=== PATIENT | male | born 1985 | race Caucasian/White ===

== ENCOUNTER 2023-06-19 11:25 | Observation (INO) | payer OTHER ==
[~2023-06-19] VITALS: Ht 180.3 cm; Wt 75.5 kg
[2023-06-19 16:18] LABS: Source, Urine Clean Catch
[2023-06-19 16:31] LABS: Appearance, Urine Clear (Clear); Bilirubin, Urine Neg (Neg); Blood, Urine Neg (Neg); Color, Urine Yellow (P-Yellow); Glucose Qualitative, Urine Neg (Neg); Ketones, Urine Neg (Neg); Leukocyte Esterase, Urine 1+ (Neg); Nitrite, Urine Neg (Neg); Protein, Urine 1+ (Neg); Urobilinogen, Urine NORM (Normal)
[2023-06-19 16:39] LABS: Bacteria Rare /hpf; Red Blood Cells, Urine 0-2 /hpf (0-2); Squamous Epithelial Cells Not Seen /hpf (Few)
[2023-06-19] MEDS ORDERED: Ketorolac Tromethamine 30mg Vial IV ONE (16:50)
[2023-06-19] MEDS ORDERED: HYDROmorphone HCl/Pf 1MG SYR IV PRN (17:10)
[2023-06-19] MEDS ORDERED: Ondansetron HCl 2 MG / ML 2ML Vial IV PRN (17:10)
[2023-06-19] MEDS ORDERED: OxyCODONE HCL 5 MG TAB PO PRN (17:15)
[2023-06-19] MEDS ORDERED: Lactated Ringer's 1,000 ML IV SCH (17:15)
[2023-06-19] MEDS ORDERED: FLU VACC QS2023-24(6MOS UP)/PF 60 MCG/0.5 ML SYRINGE IM ONE (17:15)
[2023-06-19] MEDS ORDERED: Acetaminophen 325 MG TABLET PO PRN (17:15)
[2023-06-19] MEDS ORDERED: Ketorolac Tromethamine 15mg Vial IV PRN (17:20)
[2023-06-19] MEDS ORDERED: CeFAZolin Sodium 2,000 MG in NS 50 ML IV SCH (17:20)
[2023-06-19 19:47] VITALS: BP 118/88
[2023-06-19] MEDS ORDERED: IBUP200 PO (20:04)
[2023-06-20] VITALS (23 sets, daily range): BP systolic 103–150; BP diastolic 49–95
--- NOTE | 2023-06-20 01:31 | NUR ---
ARRIVAL TO UNIT. LATE ENTRY. PT ARRIVED VIA W/C FROM ER TO ROOM 209 AT 1945 ON 06/19/23. PT AMBULATORY AND TRANSFERED INDEPENDENTLY TO BED. A/OX4. WT AND VITALS OBTAINED. PT RATES GROIN PAIN 3/10 AND REPORTS IS TOLERABLE. PT EDUCATED ON [facility]MO[facility] AND ORIENTED TO ROOM. PT PROVIDED SNACKS AND SANDWICH FROM [facility] HE IS NPO AT 0000. PT RESTING IN BED AWAKE WITH CALL LIGHT IN REACH.
[2023-06-20 05:20] LABS: BASOPHILS ABSOLUTE AUTO 0.06 K/mm3 (0.00-0.23); BASOPHILS PERCENT AUTO 1 % (0-2); EOSINOPHILS ABSOLUTE AUTO 0.22 K/mm3 (0.00-0.68); EOSINOPHILS PERCENT AUTO 4 % (0-6); Hematocrit 43.8 % (37.0-53.0); Hemoglobin 14.6 g/dL (13.5-17.5); IMMATURE GRAN ABSOLUTE AUTO 0.03 K/mm3 (0.00-0.10); IMMATURE GRAN PERCENT AUTO 1 % (0-1); LYMPHOCYTES ABSOLUTE AUTO 2.48 K/mm3 (0.84-5.20); LYMPHOCYTES PERCENT AUTO 42 % (21-46); MONOCYTES ABSOLUTE AUTO 0.47 K/mm3 (0.16-1.47); MONOCYTES PERCENT AUTO 8 % (4-13); Mean Corpuscular HGB 28.5 pg (26.0-34.0); Mean Corpuscular HGB Conc 33.3 g/dL (31.5-36.5); Mean Corpuscular Volume 85 fL (80-100); Mean Platelet Volume 9.1 fL (9.1-12.4); NEUTROPHILS ABSOLUTE AUTO 2.67 K/mm3 (1.96-9.15); NEUTROPHILS PERCENT AUTO 45 % (41-73); Platelet Count 385 K/mm3 (150-400); RDW Coefficient Variation 12.8 % (11.7-14.2); RDW Standard Deviation 39.9 fL (35.1-46.3); Red Blood Cell Count 5.13 M/mm3 (4.30-5.90); White Blood Cell Count 5.93 K/mm3 (4.00-11.30)
[2023-06-20 05:50] LABS: Albumin, Blood 3.3 g/dL (3.4-5.0); Albumin/Globulin Ratio 0.9 (0.8-1.8); Bilirubin, Total 0.2 mg/dL (0.1-1.0); Bun/Creatinine Ratio 21.3 (12.0-20.0); Calcium, Blood 9.6 mg/dL (8.5-10.1); Creatinine, Blood 0.85 mg/dL (0.60-1.20); Globulin, Blood 3.5 g/dL (2.2-4.0); Potassium, Blood 3.9 mmol/L (3.5-5.5); Total Protein, Blood 6.8 g/dL (6.4-8.2)
--- NOTE | 2023-06-20 08:09 | NUR ---
SHIFT SUMMARY NOC. PT A/O X4. PT REPORTS GROIN PAIN 3/10 THIS SHIFT AND DECLINES PAIN MEDICATION WHEN OFFERED, PT REPORTS PAIN IS TOLERABLE. SURGICAL PREVENTION COMPLETED. PT NPO SINCE 0000. PT VOIDING AND AMBULATES TO BR WITH SBA. PT RESTED WITH EYES CLOSED AND CALL LIGHT IN REACH.
[2023-06-20] MEDS ORDERED: Bupivacaine 0.5% HCl 5 MG/ML 30MLVIAL ONE (09:49)
[2023-06-20] MEDS ORDERED: Midazolam HCl 1MG / ML 2ML Vial ONE (10:45)
[2023-06-20] MEDS ORDERED: FentaNYL Citrate 50 MCG/ML 5 ML Injection ONE (10:45)
[2023-06-20] MEDS ORDERED: propofoL 20 ML IV ONE (10:45)
[2023-06-20] MEDS ORDERED: Dexamethasone Sod Phos 10 MG/ML 1ML VIAL ONE (10:46)
[2023-06-20] MEDS ORDERED: Rocuronium Bromide 10 MG/ML 5ML Injection IV ONE (10:46)
[2023-06-20] MEDS ORDERED: Ondansetron HCl 2 MG / ML 2ML Vial ONE (10:46)
[2023-06-20] MEDS ORDERED: Lactated Ringer's 1,000 ML IV ONE (10:53)
--- NOTE | 2023-06-20 10:59 | NUR ---
PT TAKEN TO DAY SURGERY AT THIS TIME.
--- NOTE | 2023-06-20 11:02 | NUR ---
PT IN PACU FOR PRE-OP, ASSUMED CARE AT 1055
[2023-06-20] MEDS ORDERED: Sugammadex Sodium 200 MG/2ML SDV (100 MG/ML) ONE ×2 (12:00→14:22)
[2023-06-20] MEDS ORDERED: HYDROmorphone HCl/Pf 1MG SYR ONE (13:30)
[2023-06-20] MEDS ORDERED: FentaNYL Citrate 50 MCG/ML 2 ML Injection ONE (15:34)
--- NOTE | 2023-06-20 16:08 | NUR ---
PT ARRIVED TO THE ROOM AT APPROXIMATELY 1605. PT DENIES PAIN UPON ARRIVAL TO THE ROOM. PT WAKES TO VERBAL STIMULI AND IS ORIENTED WHEN AWAKE. CALL LIGHT WITHIN REACH.
--- NOTE | 2023-06-20 20:02 | NUR ---
SHIFT SUMMARY PT IS POD#0 FROM BILATERAL INGUINAL HERNIA REPAIR WITH DR. MANN. PT HAS HAD DILAUDID, TYLENOL, OXY AND TORADOL FOR PAIN. PT IS CURRENTLY RATING HIS PAIN AT 5/10, PT STATES PAIN IS NOT TOLERABLE, OXY WAS GIVEN AND PT EDUCATED THAT OXYCODONE TAKES TIME TO TAKE EFFECT, NOC NOTIFIED. PT HAS TOLERATED CLEAR LIQUIDS AND IS NOW DRINKING A MILKSHAKE, HE REPORTS HAVING A DECREASED APPETITE. PT REPORTS NAUSEA COMES IN WAVES BUT DENIES NEED FOR ANTIEMETICS. PT'S S/O IS AT THE BEDSIDE. BEDSIDE REPORT GIVEN TO MECCA MARTINEZ.
[2023-06-20] MEDS ORDERED: Ondansetron HCl 2 MG / ML 2ML Vial IV PRN (20:50)
[2023-06-21 02:28] VITALS: BP 111/78
--- NOTE | 2023-06-21 06:43 | NUR ---
SHIFT SUMMARY NOC. PT POD 1 FOR BILATERAL INGUINAL HERNIA REPAIR. PT A/O X4, VOIDING URINE AND TOLERATING PO INTAKE. PT MEDICATED FOR NAUSEA X1 WITH RELIEF. LAP SITES X3 ON ABDOMEN AND SUPRAPUBIC INCISION ARE C/D/I. PT RESTED WITH EYES CLOSED AND CALL LIGHT IN REACH.
[2023-06-21 07:05] VITALS: BP 104/54
[2023-06-21] MEDS ORDERED: OXYC5 PO (09:58)
--- NOTE | 2023-06-21 10:20 | NUR ---
DISCHARGE EATING, DRINKING, & VOIDING EASILY. PAIN WELL CONTROLLED. EXCITED TO DC HOME. ESCORTED OUT VIA WC. RX GIVEN.
== END 2023-06-21 10:21 | disposition home or self-care (01) ==
LOC: ER 11:25 → SURS 11:26
PROVIDERS: Student in an Organized Health Care Education/Training Program; ADMIT Surgery
PROC: 0YUA4JZ Supplement Bilateral Inguinal Region with Synthetic Substitute, Percutaneous Endoscopic Approach (ICD-10-PCS; principal; 2023-06-20 09:45)
PROC: 8E0W4CZ Robotic Assisted Procedure of Trunk Region, Percutaneous Endoscopic Approach (ICD-10-PCS; principal; 2023-06-20 09:45)
DX: K40.00 Bilateral inguinal hernia, with obstruction, without gangrene, not specified as recurrent (principal); N43.3 Hydrocele, unspecified; Z91.038 Other insect allergy status
CPT/HCPCS: 36415; 74177; 80053; 81001; 85025; 87086; 88108; 88304; 96374-59; 96375; 99285-25; A9270; C1781; G0378; J0690; J1100; J1170; J1885; J2250; J2405; J2704; J3010; J7120; Q9967

== ENCOUNTER → 2023-06-19 | Outpatient (CLI) | payer OTHER ==
[~2023-06-19] MED LIST: IBUP200 PO; OXYC5 PO
[2023-06-19 11:04] LABS: BASOPHILS ABSOLUTE AUTO 0.07 K/mm3 (0.00-0.23); BASOPHILS PERCENT AUTO 1 % (0-2); EOSINOPHILS ABSOLUTE AUTO 0.19 K/mm3 (0.00-0.68); EOSINOPHILS PERCENT AUTO 3 % (0-6); Hematocrit 46.9 % (37.0-53.0); Hemoglobin 15.7 g/dL (13.5-17.5); IMMATURE GRAN ABSOLUTE AUTO 0.02 K/mm3 (0.00-0.10); IMMATURE GRAN PERCENT AUTO 0 % (0-1); LYMPHOCYTES ABSOLUTE AUTO 2.62 K/mm3 (0.84-5.20); LYMPHOCYTES PERCENT AUTO 37 % (21-46); MONOCYTES PERCENT AUTO 9 % (4-13); Mean Corpuscular HGB 28.7 pg (26.0-34.0); Mean Corpuscular HGB Conc 33.5 g/dL (31.5-36.5); Mean Corpuscular Volume 86 fL (80-100); Mean Platelet Volume 9.2 fL (9.1-12.4); NEUTROPHILS ABSOLUTE AUTO 3.56 K/mm3 (1.96-9.15); NEUTROPHILS PERCENT AUTO 50 % (41-73); Platelet Count 468 K/mm3 (150-400); RDW Coefficient Variation 12.7 % (11.7-14.2); RDW Standard Deviation 39.7 fL (35.1-46.3); Red Blood Cell Count 5.47 M/mm3 (4.30-5.90); White Blood Cell Count 7.06 K/mm3 (4.00-11.30)
[2023-06-19 11:22] LABS: Alanine Aminotransfer (ALT/SGP 31 U/L (12-78); Albumin, Blood 3.7 g/dL (3.4-5.0); Albumin/Globulin Ratio 0.9 (0.8-1.8); Alk Phos 95 U/L (50-136); Anion Gap 1 mmol/L (6-16); Aspartate Aminotrans (AST/SGOT 16 U/L (12-37); Bilirubin, Total 0.3 mg/dL (0.1-1.0); Blood Urea Nitrogen 9 mg/dL (8-24); Bun/Creatinine Ratio 10.3 (12.0-20.0); C-REACTIVE PROTEIN, EXT RANGE <0.290 mg/dL (0.000-0.300); CO2, Blood 30 mmol/L (21-32); Calcium, Blood 9.5 mg/dL (8.5-10.1); Chloride, Blood 105 mmol/L (98-108); Creatinine, Blood 0.87 mg/dL (0.60-1.20); Glomerular Filtration Rate 112 (60-); Glucose, Blood 99 mg/dL (70-99); Potassium, Blood 4.5 mmol/L (3.5-5.5); Sodium, Blood 136 mmol/L (136-145); Total Protein, Blood 7.7 g/dL (6.4-8.2)
== END ==
LOC: LAB 10:55 → LAB SHORT 10:55
PROVIDERS: Nurse Practitioner Family
DX: K40.20 Bilateral inguinal hernia, without obstruction or gangrene, not specified as recurrent (principal)
CPT/HCPCS: 80053; 85025; 86140

== ENCOUNTER 2023-09-23 09:39 | Emergency (ER) | payer OTHER ==
[~2023-09-23] VITALS: Ht 180.3 cm; Wt 74.8 kg
[2023-09-23 14:15] VITALS: BP 129/91
== END 2023-09-23 14:54 | disposition home or self-care (01) ==
LOC: ER 09:39
DX: N43.3 Hydrocele, unspecified (principal); Z91.030 Bee allergy status